=== PATIENT | male | born 1945 | race Caucasian/White ===

== ENCOUNTER 2018-03-06 07:37 | Day surgery (SDC) | payer MEDICARE ==
[2018-03-06] MEDS ORDERED: NACL 0.9% 1000 ML 1,000 ML ONE (08:19)
--- NOTE | 2018-03-06 09:18 | Anesthesia Consultation ---
Anesthesia Consult and Med Hx Date of service: 03/06/18 - Airway Anesthetic Teeth Evaluation: Good ROM Head & Neck: Adequate Mental/Hyoid Distance: Adequate Mallampati Class: Class III Intubation Access Assessment: Possibly Difficult - Pre-Operative Health Status ASA Pre-Surgery Classification: ASA3 Proposed Anesthetic Plan: MAC - Pulmonary Hx Sleep Apnea: Yes (uses CPAP) - Cardiovascular System Hx Hypertension: Yes Hx Coronary Artery Disease: No (high cholesterol) - Endocrine Hx Renal Disease: Yes (s/p right kidney resection for CA)
--- NOTE | 2018-03-06 09:20 | Anesthesia Day of Surgery ---
Anesthesia Day of Surgery - Day of Surgery Patient Examined: Yes Patient H&P Reviewed: Yes Patient is NPO: Yes
[2018-03-06] MEDS ORDERED: VERSED ONE (09:46)
[2018-03-06] MEDS ORDERED: DIPRIVAN 10 MG/ML IV ONE (09:47)
--- NOTE | 2018-03-06 10:12 | Post Operative Note ---
Pre-op diagnosis: gastric polyps Post-op diagnosis: same Findings: Multiple gastric polyps (known) varying in size from 4 mm to 1 cm removed with hot snare polypectomy Procedure: EGD with snare polypectomy Anesthesia: MAC Surgeon: CHAU RICHARDS Estimated blood loss: minimal Pathology: list (Gastric polyp) Specimen disposition: to lab Condition: stable Disposition: same day
--- NOTE | 2018-03-06 10:15 | Operative Report ---
Operative Report Operative Report: Esophagogastroduodenoscopy Procedure Note with Snare Polypectomy Date of procedure: 03/06/2018 Endoscopist: Guero Saenz Pre-op diagnosis: Gastric polyps Post-op diagnosis: multiple gastric polyps in antrum removed Anesthesia: MAC Complications: No immediate complications Estimated blood loss: minimal Procedure: After consent was obtained, the patient was placed in the left lateral decubitus position. The fujinon endoscope was inserted into the patient 's mouth under direct vision, and advanced to the 2nd portion of duodenum without difficulty. The patient tolerated the procedure well. The views of the mucosa were good. Patient's vital signs were monitored continuously throughout the procedure. Findings: The esophagus appeared normal. There were multiple gastric polyps in the antrum of the stomach. The polyps ranged in size from 5-12 mm. The polyps were removed with hot snare polypectomy ; larger polyps were not retrieved however (prior biopsies showed hyperplastic polyps) The duodenum appeared normal. Impression: 1. Multiple gastric polyps removed with hot snare polypectomy Recommendations: -follow-up pathology -surveillance EGD in 6-12 months -return to GI clinic as scheduled -avoid NSAID medications x 7 days
[2018-03-06 11:14] VITALS: BP 127/67
== END 2018-03-06 07:38 | disposition home or self-care (01) ==
LOC: GIO 07:37
PROVIDERS: ATTEND Internal Medicine Gastroenterology
DX: K31.7 Polyp of stomach and duodenum (principal); B96.81 Helicobacter pylori [H. pylori] as the cause of diseases classified elsewhere; K76.0 Fatty (change of) liver, not elsewhere classified; I25.10 Atherosclerotic heart disease of native coronary artery without angina pectoris; I10 Essential (primary) hypertension; Z85.528 Personal history of other malignant neoplasm of kidney; Z90.5 Acquired absence of kidney; Z99.89 Dependence on other enabling machines and devices
CPT/HCPCS: 43251; 88305; 88342; J2250; J2704; J7030

== ENCOUNTER 2019-02-22 09:18 | Emergency (ER) | payer MEDICARE ==
--- NOTE | 2019-02-22 10:26 | Emergency Department Report ---
ED Male HPI - General Chief complaint: Urogenital-Male Stated complaint: CATHETER OUT/PAIN Time Seen by Provider: 02/22/19 10:17 Source: patient, family, RN notes reviewed Mode of arrival: Ambulatory Limitations: Language Barrier - History of Present Illness Initial comments: The patient is able to converse in [place], and has given oral consent for his daughter to translate in Citizen [place] as well. THis provider is conversational in [place] This is a 73-year-old gentleman who presents to the emergency room with inability to urinate. The patient reports having had a left-sided "kidney ablation", for questionable kidney cancer, at [facility] last month. He reportedly was not able to urinate thereafter, and had a Small catheter placed. His private urologist is Dr. Iza Lewis He reports the Small catheter came out on Sunday, and he was able to urinate intermittently since Sunday, up until last night, when he then became obstructed. He presents with a primary complaint of inability to urinate. The symptoms are constant. They are associated with lower abdominal pain. He's not had a fever that he is aware of, denies vomiting, endorses testicular pressure, and denies upper abdominal pain. MD Complaint: other -: Sudden Location: abdomen (suprapubic region) Radiation: none Severity: moderate Quality: aching Consistency: constant Improves with: rest Worsens with: palpation, movement - Related Data Previous Rx's Medication Instructions Recorded Last Taken Type Magnesium Oxide 500 mg PO BID #30 capsule 02/22/19 Unknown Rx Nitrofurantoin [place]/M-Cryst 100 mg PO Q12HR #14 capsule 02/22/19 Unknown Rx [Macrobid CAP] Potassium Chloride 20 meq PO BID #30 packet 02/22/19 Unknown Rx Allergies Allergy/AdvReac Type Severity Reaction Status Date / Time No Known Allergies Allergy Verified 03/06/18 08:23 ED Review of Systems ROS: Stated complaint: CATHETER OUT/PAIN Other details as noted in HPI Constitutional: denies: fever Eyes: denies: eye discharge ENT: denies: epistaxis Respiratory: denies: cough Cardiovascular: denies: chest pain Gastrointestinal: abdominal pain Genitourinary: other Musculoskeletal: arthralgia Neurological: denies: weakness ED Past Medical Hx - Past Medical History Previous Medical History?: Yes Hx Hypertension: Yes Hx Renal Disease: Yes (s/p right kidney resection for CA) - Surgical History Past Surgical History?: No - Social History Smoking Status: Never Smoker Substance Use Type: None - Medications Home Medications: Home Medications Medication Instructions Recorded Confirmed Last Taken Type Magnesium Oxide 500 mg PO BID #30 capsule 02/22/19 Unknown Rx Nitrofurantoin [place]/M-Cryst 100 mg PO Q12HR #14 capsule 02/22/19 Unknown Rx [Macrobid CAP] Potassium Chloride 20 meq PO BID #30 packet 02/22/19 Unknown Rx ED Physical Exam - General Limitations: Language Barrier General appearance: alert, in no apparent distress - Head Head exam: Present: atraumatic, normocephalic - Eye Eye exam: Present: normal appearance, EOMI. Absent: nystagmus - ENT ENT exam: Present: normal exam, normal orophraynx, mucous membranes moist, normal external ear exam - Neck Neck exam: Present: normal inspection, full ROM. Absent: tenderness, meningismus - Respiratory Respiratory exam: Present: normal lung sounds bilaterally. Absent: respiratory distress - Cardiovascular Cardiovascular Exam: Present: regular rate, normal rhythm, normal heart sounds. Absent: bradycardia, tachycardia, irregular rhythm, systolic murmur, diastolic murmur, rubs, gallop - GI/Abdominal GI/Abdominal exam: Present: soft, distended, tenderness, other (there is suprapubic tenderness. There is no rebound, guarding or peritoneal signs.). Absent: guarding, rebound, rigid, pulsatile mass - Rectal Rectal exam: Present: deferred - exam: Present: normal inspection, other (there is no testicular tenderness. There is normal testicular lie bilaterally. There is normal cremasteric reflex bilaterally.). Absent: testicular tenderness External exam: Present: normal external exam, other (chaperoned by nurse Valera) - Extremities Exam Extremities exam: Present: normal inspection, full ROM, other (2+ pulses noted in the bilateral upper, lower extremities. Compartments soft. No long bony tenderness. The pelvis is stable.). Absent: pedal edema, joint swelling, calf tenderness - Back Exam Back exam: Present: normal inspection, full ROM. Absent: tenderness, CVA tenderness (R), CVA tenderness (L), paraspinal tenderness, vertebral tenderness - Neurological Exam Neurological exam: Present: alert, normal gait, other (Extraocular movements intact. Tongue midline. No facial droop. Facial sensation intact to light touch in the V1, V2, V3 distribution bilaterally. 5 and 5 strength in 4 extremities.. Sensation is intact to light touch in 4 extremities.) - Psychiatric Psychiatric exam: Present: normal affect, normal mood - Skin Skin exam: Present: warm, dry, intact, normal color. Absent: rash ED Course Vital Signs 02/22/19 02/22/19 02/22/19 09:22 11:00 11:54 Temperature 97.7 F Pulse Rate 85 63 Respiratory 18 18 18 Rate Blood Pressure 159/73 Blood Pressure 130/65 [Right] O2 Sat by Pulse 97 100 Oximetry - Reevaluation(s) Reevaluation #1: 02/22/19 10:51 Differential diagnosis, including not limited to: Obstructive uropathy, BPH, prostate cancer, urinary tract infection, electrolyte derangement Assessment and plan: 73-year-old gentleman with urinary obstruction. He is afebrile with reassuring vital signs. We will place Small catheter with a leg bag. We will obtain urinalysis and urine culture. We will obtain screening laboratory studies. We will reassess. Reevaluation #2: 02/22/19 12:31 Patient feels improved after Small catheter. As per verbal report from nursing team, initially had 600 mL of clear yellow urine returned from the Small catheter after placement. An additional 400 mL has come out. Urinalysis suggests urinary tract infection. Also found to be hypokalemic and hypomagnesemic. Medical records reviewed apparently, recently had cryoablation of left renal mass on 01/17/2019. Medical records were seen and reviewed. Patient apparently had cryoablation of left renal cell carcinoma with CT and ultrasound guidance. Currently, and in no acute distress. After his ablation procedure was performed, a CT scan was performed, and it showed the right kidney to be without evidence of hydronephrosis, and post-ablation changes were noted to the left lower pole of the kidney with an ablation zone noted. No metastatic disease was noted in the abdomen. Patient can be discharged with leg bag, potassium and magnesium supplementation, and instructions to follow up with his outpatient primary care doctor, and urology specialist. ED Medical Decision Making - Lab Data Result diagrams: 02/22/19 10:43 Vital Signs 02/22/19 02/22/19 02/22/19 09:22 11:00 11:54 Temperature 97.7 F Pulse Rate 85 63 Respiratory 18 18 18 Rate Blood Pressure 159/73 Blood Pressure 130/65 [Right] O2 Sat by Pulse 97 100 Oximetry Lab Results 02/22/19 02/22/19 Range/Units 10:43 Unknown Sodium 137 (137-145) mmol/L Potassium 3.1 L (3.6-5.0) mmol/L Chloride 92.6 L (98-107) mmol/L Carbon Dioxide 26 (22-30) mmol/L Anion Gap 22 mmol/L BUN 23 H (9-20) mg/dL Creatinine 1.3 (0.8-1.5) mg/dL Estimated GFR 54 ml/min BUN/Creatinine Ratio 18 % Glucose 174 H (75-100) mg/dL Calcium 9.3 (8.4-10.2) mg/dL Magnesium 1.60 L (1.7-2.3) mg/dL Total Creatine Kinase 175 H (55-170) units/L Urine Color Yellow (Yellow) Urine Turbidity Slightly-cloudy (Clear) Urine pH 5.0 (5.0-7.0) Ur Specific [place] 1.011 (1.003-1.030) Urine Protein <15 mg/dl (Negative) mg/dL Urine Glucose (UA) Neg (Negative) mg/dL Urine Ketones Neg (Negative) mg/dL Urine Blood Sm (Negative) Urine Nitrite Neg (Negative) Urine Bilirubin Neg (Negative) Urine Urobilinogen < 2.0 (<2.0) mg/dL Ur Leukocyte Esterase Lg (Negative) Urine WBC (Auto) 68.0 H (0.0-6.0) /HPF Urine RBC (Auto) 11.0 (0.0-6.0) /HPF Urine Bacteria (Auto) 1+ (Negative) /HPF - EKG Data -: EKG Interpreted by Ks EKG shows normal: sinus rhythm Rate: normal - EKG Data When compared to previous EKG there are: previous EKG unavailable 02/22/19 12:34 EKG shows a sinus rhythm, 74 bpm, normal axis, QTC prolonged, AZ interval prolonged, low voltage, no endorsement of chest pain, abnormal EKG, not consistent with ST elevation myocardial infarction. - Radiology Data Radiology results: report reviewed Critical care attestation.: If time is entered above; I have spent that time in minutes in the direct care of this critically ill patient, excluding procedure time. ED Disposition Clinical Impression: Urinary retention, Hypokalemia, Hypomagnesemia Disposition: [id number] TO HOME OR SELFCARE Is pt being admited?: No Does the pt Need Aspirin: No Condition: Stable Additional Instructions: Cultures were sent today, and results will be available in the next 3-5 days. Please have your primary care doctor or urology specialist contact the medical records department to obtain culture results. Keep the Small catheter in place, attached to a leg bag, and please follow-up with your urology specialist within the next 7 days for repeat evaluation, and trial of void. Take potassium and magnesium supplementation as directed. Will up with her primary care doctor within the next 3-4 weeks to have potassium and magnesium levels rechecked. Return to the emergency room right away with new, worsening or different symptoms, or symptoms not present on the initial ER evaluation. Las culturas se enviaron hoy, y los resultados estarn disponibles en los prximos 3-5 rogers. Solicite a parsons mdico de atencin primaria o especialista en urologa que se comunique con el departamento de registros mdicos para obtener resultados de cultivo. Mantenga el catter de Small en parsons lugar, sujeto a melia bolsa para la pierna, y ana un seguimiento con parsons especialista en urologa dentro de los prximos 7 rogers para repetir la evaluacin y probar el vaco. [place] suplementos de potasio y magnesio segn las indicaciones. Se pondr de acuerdo con parsons mdico de atencin primaria en las prximas 3 a 4 semanas para que se vuelvan a controlar los niveles de potasio y magnesio. Regrese a la danya de emergencias de inmediato con sntomas nuevos, que empeoran o diferentes, o sntomas que no se presentan en la evaluacin inicial de la danya de emergencias. Referrals: CRISTIN ALCALA MD [Staff Physician] - 7-10 days
[2019-02-22 11:08] LABS: Calcium 9.3 mg/dL (8.4-10.2)
[2019-02-22] MEDS ORDERED: MAGNESIUM SULFATE 2GM/50ML 2 GM/50 ML BAG IV ONE (11:27)
[2019-02-22] MEDS ORDERED: K-DUR PO ONE (11:27)
[2019-02-22 11:33] LABS: Bacteria,Urine 1+ /HPF (Negative); Bilirubin,Urine NEG (Negative); Blood,Urine SM (Negative); Color,Urine Yellow (Yellow); Protein,Urine <15 mg/dL mg/dL (Negative); Urobilinogen,Urine < 2.0 mg/dL (<2.0)
[2019-02-22] MEDS ORDERED: NACL 0.9% 500 ML 500 ML ONE (11:52)
[2019-02-22] MEDS ORDERED: KCL 10MEQ/100ML 10 MEQ/100 ML BAG IV SCH (12:00)
[2019-02-22 13:46] VITALS: BP 185/85
== END 2019-02-22 14:06 | disposition home or self-care (01) ==
LOC: ED 09:18
DX: R33.9 Retention of urine, unspecified (principal); E87.6 Hypokalemia; E83.42 Hypomagnesemia; I10 Essential (primary) hypertension
CPT/HCPCS: 36415; 51702; 80048; 81001; 82550; 83735; 87086; 93005; 93010; 96365; 96367; 99284; J3475; J3480; J7040

== ENCOUNTER 2020-03-22 20:10 | Emergency (ER) | payer MEDICARE ==
[2020-03-22 20:36] VITALS: BP 143/65
[2020-03-22 21:30] LABS: Basophils % (Auto) 0.8 % (0.0-1.8); Eosinophils % (Auto) 0.1 % (0.0-4.3); Hematocrit 34.6 % (35.5-45.6); Hemoglobin 11.6 gm/dl (11.8-15.2); Lymphocytes # (Auto) 0.9 K/mm3 (1.2-5.4); Mean Corpuscular HGB Conc 34 % (32-34); Mean Corpuscular Volume 80 fl (84-94); Monocytes # (Auto) 0.4 K/mm3 (0.0-0.8); Monocytes % (Auto) 6.7 % (0.0-7.3); Platelet Count 172 K/mm3 (140-440); Red Blood Count 4.31 M/mm3 (3.65-5.03); Red Cell Distribution Width 15.4 % (13.2-15.2)
--- NOTE | 2020-03-22 22:04 | XRay Report ---
CHEST 2 VIEWS 2142 INDICATION / CLINICAL INFORMATION: MAIN COMPARISON: None available. FINDINGS: SUPPORT DEVICES: None. HEART / MEDIASTINUM: No significant abnormality. LUNGS / PLEURA: Bibasilar increased markings are seen, more on the right. This could represent a comb ination of atelectatic change and possible pneumonic infiltrate, particularly in the right base. No d ense areas of consolidation are seen however. No pleural effusions are noted. No pneumothorax. ADDITIONAL FINDINGS: No significant additional findings. IMPRESSION: Basilar increased markings as above. Recommend clinical correlation and follow-up. Signer Name: Vic Alva MD Signed: 03/22/2020 9:59 PM Workstation Name: [id number]
[2020-03-22 22:09] LABS: Albumin 4.2 g/dL (3.9-5); Calcium 9.3 mg/dL (8.4-10.2)
--- NOTE | 2020-03-22 23:04 | Emergency Department Report ---
ED General Adult HPI - General Chief complaint: Dyspnea/Respdistress Stated complaint: DIFF BREATHING PUI?: Yes Time Seen by Provider: 03/22/20 22:52 Source: patient, RN notes reviewed, old records reviewed Mode of arrival: Ambulatory Limitations: No Limitations - History of Present Illness Initial comments: The patient is a 74-year-old gentleman. I have evaluated this gentleman in the past. The patient is able to speak in Nepali to myself. The patient presents to the ER with a complaint of shortness of breath for 5 years. He reports new onset fatigue which started 3 to 4 days ago. This is accompanied by a change in his taste. He denies physical pain. Denies headache, neck pain, chest pain, abdominal pain, irritative/obstructive urinary symptoms. Positive cough. No body aches. Positive decrease in exercise tolerance. Reports no COVID exposure that he is aware of. Symptoms present for the past 3 to 4 days, worsened with physical exertion and decreased with rest. Please note that during the entire history and physical examination, I had on complete personal protective equipment -: Gradual, days(s) Consistency: constant Improves with: rest Worsens with: movement - Related Data Previous Rx's Medication Instructions Recorded Last Taken Type Acetaminophen [Non-Aspirin Extra 500 mg PO Q6HR PRN #30 tablet 03/23/20 Unknown Rx Strength] Albuterol Sulfate [Proair 90 mcg IH Q4HR PRN #2 aer.pow.ba 03/23/20 Unknown Rx Respiclick] Amoxicillin [Trimox CAP] 1,000 mg PO Q8H #28 capsule 03/23/20 Unknown Rx Azithromycin [Zithromax TAB] 250 mg PO QDAY #4 tablet 03/23/20 Unknown Rx Potassium Chloride 20 meq PO BID #30 packet 03/23/20 Unknown Rx Allergies Allergy/AdvReac Type Severity Reaction Status Date / Time No Known Allergies Allergy Verified 03/06/18 08:23 ED Review of Systems ROS: Stated complaint: DIFF BREATHING Other details as noted in HPI Constitutional: denies: fever Eyes: denies: eye discharge ENT: congestion Respiratory: cough, shortness of breath Cardiovascular: denies: chest pain Gastrointestinal: denies: abdominal pain Genitourinary: denies: dysuria Musculoskeletal: denies: back pain Neurological: weakness ED Past Medical Hx - Past Medical History Hx Hypertension: Yes Hx Renal Disease: Yes (s/p right kidney resection for CA) Hx of Cancer: Yes (prostate and kidney) Hx Arthritis: Yes - Surgical History Past Surgical History?: Yes Additional Surgical History: abd - Social History Smoking Status: Never Smoker Substance Use Type: None - Medications Home Medications: Home Medications Medication Instructions Recorded Confirmed Last Taken Type Acetaminophen [Non-Aspirin Extra 500 mg PO Q6HR PRN #30 tablet 03/23/20 Unknown Rx Strength] Albuterol Sulfate [Proair 90 mcg IH Q4HR PRN #2 aer.pow.ba 03/23/20 Unknown Rx Respiclick] Amoxicillin [Trimox CAP] 1,000 mg PO Q8H #28 capsule 03/23/20 Unknown Rx Azithromycin [Zithromax TAB] 250 mg PO QDAY #4 tablet 03/23/20 Unknown Rx Potassium Chloride 20 meq PO BID #30 packet 03/23/20 Unknown Rx ED Physical Exam - General Limitations: No Limitations General appearance: alert, in no apparent distress - Head Head exam: Present: atraumatic, normocephalic - Eye Eye exam: Present: normal appearance, EOMI. Absent: nystagmus - ENT ENT exam: Present: normal exam, normal orophraynx, mucous membranes moist, normal external ear exam - Neck Neck exam: Present: normal inspection, full ROM. Absent: tenderness, meningismus - Respiratory Respiratory exam: Present: decreased breath sounds. Absent: respiratory distress, wheezes, rales, rhonchi, stridor - Cardiovascular Cardiovascular Exam: Present: regular rate, normal rhythm, normal heart sounds. Absent: bradycardia, tachycardia, irregular rhythm, systolic murmur, diastolic murmur, rubs, gallop - GI/Abdominal GI/Abdominal exam: Present: soft, normal bowel sounds. 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 There is no palpable cord. negative Homans sign. Muscular compartments are soft. The pelvis is stable.). Absent: pedal edema, calf tenderness - Back Exam Back exam: Present: normal inspection, full ROM. Absent: tenderness, CVA tenderness (R), CVA tenderness (L), paraspinal tenderness, vertebral tenderness - Neurological Exam Neurological exam: Present: alert, normal gait, other (2+ pulses noted in the bilateral upper and lower extremities. There is no palpable cord. negative Homans sign. Muscular compartments are soft. The pelvis is stable.). Absent: motor sensory deficit - Psychiatric Psychiatric exam: Present: normal affect, normal mood - Skin Skin exam: Present: warm, dry, intact, normal color. Absent: rash ED Course Vital Signs 03/22/20 20:25 Temperature 99.1 F Pulse Rate 76 Respiratory 18 Rate Blood Pressure 143/65 O2 Sat by Pulse 97 Oximetry ED Medical Decision Making - Lab Data Result diagrams: 03/22/20 21:18 03/22/20 21:18 Vital Signs 03/22/20 20:25 Temperature 99.1 F Pulse Rate 76 Respiratory 18 Rate Blood Pressure 143/65 O2 Sat by Pulse 97 Oximetry Lab Results 03/22/20 03/22/20 03/22/20 Range/Units 21:18 21:18 21:18 WBC 5.9 (4.5-11.0) K/mm3 RBC 4.31 (3.65-5.03) M/mm3 Hgb 11.6 L (11.8-15.2) gm/dl Hct 34.6 L (35.5-45.6) % MCV 80 L (84-94) fl MCH 27 L (28-32) pg MCHC 34 (32-34) % RDW 15.4 H (13.2-15.2) % Plt Count 172 (140-440) K/mm3 Lymph % (Auto) 16.0 (13.4-35.0) % [place] % (Auto) 6.7 (0.0-7.3) % Eos % (Auto) 0.1 (0.0-4.3) % Baso % (Auto) 0.8 (0.0-1.8) % Lymph # 0.9 L (1.2-5.4) K/mm3 [place] # 0.4 (0.0-0.8) K/mm3 Eos # 0.0 (0.0-0.4) K/mm3 Baso # 0.0 (0.0-0.1) K/mm3 Seg Neutrophils % 76.4 H (40.0-70.0) % Seg Neutrophils # 4.5 (1.8-7.7) K/mm3 Sodium 138 (137-145) mmol/L Potassium 2.9 L* (3.6-5.0) mmol/L Chloride 91.8 L (98-107) mmol/L Carbon Dioxide 28 (22-30) mmol/L Anion Gap 21 mmol/L BUN 23 H (9-20) mg/dL Creatinine 1.3 (0.8-1.5) mg/dL Estimated GFR 54 ml/min BUN/Creatinine Ratio 18 % Glucose 128 H (75-100) mg/dL Calcium 9.3 (8.4-10.2) mg/dL Total Bilirubin 0.80 (0.1-1.2) mg/dL AST 35 (5-40) units/L ALT 51 (7-56) units/L Alkaline Phosphatase 91 (35-129) units/L Troponin T < 0.010 (0.00-0.029) ng/mL Total Protein 7.9 (6.3-8.2) g/dL Albumin 4.2 (3.9-5) g/dL Albumin/Globulin Ratio 1.1 % - Radiology Data Radiology results: report reviewed, image reviewed Print Report Referring Physician: ENZO SALINAS Patient Name: ANGIE GAN Date of : 1945 Sex: Male Report Date: 2020-03-22 Report Status: Finalized Findings [facility] [address] [place] [address] XRay Report Signed Patient: ANGIE GO MR#: [id number] : 1945 Acct:[id number] Age/Sex: 74 / M ADM Date: 03/22/20 Loc: ED Attending Dr: Ordering Physician: VINAY BRUNSON Date of Service: 03/22/20 Procedure(s): XR chest routine 2V Accession Number(s): [id number] cc: VINAY BRUNSON Fluoro Time In Minutes: CHEST 2 VIEWS 2143 INDICATION / CLINICAL INFORMATION: MAIN COMPARISON: None available. FINDINGS: SUPPORT DEVICES: None. HEART / MEDIASTINUM: No significant abnormality. LUNGS / PLEURA: Bibasilar increased markings are seen, more on the right. This could represent a combination of atelectatic change and possible pneumonic infiltrate, particularly in the right base. No dense areas of consolidation are seen however. No pleural effusions are noted. No pneumothorax. ADDITIONAL FINDINGS: No significant additional findings. IMPRESSION: Basilar increased markings as ab ove. Recommend clinical correlation and follow-up. Signer Name: Vic Alva MD Signed: 03/22/2020 9:59 PM Workstation Name: [id number] Transcribed By: GIOVANNA Dictated By: Vic Alva MD Electronically Authenticated By: Vic Alva MD Signed Date/Time: 03/22/202158 DD/ 58 TD/TT: - Medical Decision Making Differential diagnosis, including but not limited to: Viral syndrome, pneumonia, electrolyte derangement Assessment and plan: 74-year-old gentleman, who is afebrile with reassuring vital signs, with nonspecific constitutional symptoms, suspicious for coronavirus. The patient and I ambulated on room oxygen, on a portable pulse oximeter, for 5 minutes. He desaturated to 93/94%. He was visibly winded and short of breath. I recommended admission to the hospital for supportive care. The patient is declining/refusing. Explained the risks of leaving AGAINST MEDICAL ADVICE, including , disability, paralysis, loss of quality of life. Explained this in both Nepali and Uzbek. The patient verbalized understanding. The patient is alert and oriented, clinically sober, and exhibits decision-making capacity at this time. He is free from distracting injury at this time. He is amenable to oral antibiotics and potassium supplementation. We will discharge him with the aforementioned as well. Explained to the patient that he should follow-up as soon as possible with an outpatient primary care doctor. Explained to the patient that he may return to the emergency room right away if and when he changes his mind. The patient's primary reason for not wanting to be admitted to the hospital is that he does not want to be exposed to coronavirus patients while in the hospital. Explained to the patient that he likely has coronavirus. The patient is still adamant about this decision making Critical Care Time: Yes Critical care time in (mins) excluding proc time.: 35 Critical care attestation.: If time is entered above; I have spent that time in minutes in the direct care of this critically ill patient, excluding procedure time. ED Disposition Clinical Impression: Suspected 2019 novel coronavirus infection, Hypokalemia Disposition: [id number] LEFT AGAINST MED ADVICE Is pt being admited?: No Does the pt Need Aspirin: No Condition: Undetermined Additional Instructions: As we discussed, you have left the hospital/emergency room AGAINST MEDICAL ADVICE. By leaving, you risked , disability, paralysis, permanent loss of quality of life. The ER is open 24 hours a day, 7 days a week. It never closes. Please return to the emergency room right away if and when you change your mind. If you decide not to return to the emergency room, please follow-up with the listed physician referrals as soon as possible. Take the medications as prescribed and directed. Avoid exposure to the very young, very elderly, and those with chronic medical conditions. Please make certain to self isolate and self quarantine. Make certain to wash hands frequently, thoroughly and often. Wear a mask when in close proximity to other human beings. [place] discutimos, usted schaefer abandonado el hospital / danya de emergencias CONTRA EL ASESORAMIENTO MDICO. Al irse, corra el riesgo de muerte, discapacidad, parlisis, prdida permanente de la calidad de carlos manuel. La danya de emergencias est abierta las 24 horas del da, los 7 rogers de la semana. Nunca se sarah. Regrese a la danya de emergencias de inmediato si cambia de opinin y cuando lo ana. Si decide no regresar a la danya de emergencias, realice un seguimiento con las derivaciones mdicas enumeradas lo antes posible. [place] los medicamentos segn lo prescrito y lo indicado. Evite la exposicin a los muy jvenes, muy ancianos y aquellos con afecciones mdicas crnicas. Asegrese de aislarse y ponerse en cuarentena. Asegrese de lavarse las ja con frecuencia, a fondo y con frecuencia. Use melia mscara cuando est cerca de otros seres humanos. Referrals: MCKENNA HERNANDEZ MD [Staff Physician] - 3-5 Days [facility] [Provider Group] - 3-5 Days
[2020-03-22] MEDS ORDERED: AMOXICILLIN 500 MG CAP PO ONE (23:37)
[2020-03-22] MEDS ORDERED: AZITHROMYCIN 250 MG TAB PO ONE (23:37)
[2020-03-22] MEDS ORDERED: POTASSIUM CHLORIDE ER 20 MEQ TAB PO ONE (23:37)
== END 2020-03-23 00:40 | disposition left against medical advice (07) ==
LOC: ED 20:10
DX: E87.6 Hypokalemia (principal); I10 Essential (primary) hypertension; M13.80 Other specified arthritis, unspecified site; Z79.899 Other long term (current) drug therapy; Z85.46 Personal history of malignant neoplasm of prostate; Z85.528 Personal history of other malignant neoplasm of kidney
CPT/HCPCS: 36415; 71046; 80053; 82550; 83735; 84484; 85025